=== PATIENT | male | born 1950 | race Caucasian/White ===

== ENCOUNTER 2017-08-09 11:54 | Inpatient (IN) | payer OTHER ==
[~2017-08-09] VITALS: Ht 188 cm; Wt 104.3 kg
[~2017-08-09 11:54] MED LIST: AMLODIPINE-BEN1 EAC2 PO; BISOPROLOL-HCT1 EAC2 PO; HYDROCODON-ACE1 EAC7 PO; KEFLEX250 MG PO
[2017-08-09 13:48] LABS: HEMATOCRIT 47.1 % (38.0-50.0); HEMOGLOBIN 16.1 G/DL (12.5-16.6); MCH 30.3 PG (29.0-34.0); MCHC 34.2 G/DL (30.0-36.0); MCV 88.7 FL (86-99); PLATELET COUNT 471 K/uL (156-360); RBC DIS.WIDTH-CV 12.5 % (11.8-14.6); RBC DIS.WIDTH-SD 40.8 % (39-53); RED BLOOD COUNT 5.31 M/uL (4.00-5.50)
[2017-08-09 13:51] LABS: CHLORIDE 102 mEq/L (99-109); POTASSIUM 3.7 mEq/L (3.7-5.4); SODIUM 138 mEq/L (136-147)
[2017-08-09 13:52] LABS: GLUCOSE 170 mg/dL (70-99)
[2017-08-09 13:56] LABS: CREATININE 0.9 mg/dL (0.6-1.3); GFR ESTIMATE (CALCULATED) > 59 mL/min/ (58.99-99999)
[2017-08-09 13:57] LABS: UREA NITROGEN (BUN) 22 mg/dL (9-23)
[2017-08-09 15:43] VITALS: BP 155/74
[2017-08-09 19:26] VITALS: BP 143/67
[2017-08-10 00:33] VITALS: BP 138/71
[2017-08-10 04:46] VITALS: BP 138/70
[2017-08-10 05:59] LABS: BASOPHIL (%) 0.9 % (0-1); BASOPHIL COUNT 0.1 K/uL (0-0.1); EOSINOPHIL (%) 3.2 % (0-5); EOSINOPHIL COUNT 0.2 K/uL (0-0.3); HEMATOCRIT 42.8 % (38.0-50.0); HEMOGLOBIN 14.2 G/DL (12.5-16.6); IMMATURE GRANULOCYTE (%) 0.6 % (0.0-0.7); LYMPHOCYTE (%) 23.5 % (15-42); LYMPHOCYTE COUNT 1.6 K/uL (1.0-2.8); MCH 29.6 PG (29.0-34.0); MCHC 33.2 G/DL (30.0-36.0); MCV 89.2 FL (86-99); MONOCYTE (%) 12.7 % (3-12); MONOCYTE COUNT 0.9 K/uL (0-0.8); NEUTROPHIL (%) 59.1 % (45-76); NEUTROPHIL COUNT 4.1 K/uL (1.8-6.4); PLATELET COUNT 411 K/uL (156-360); RBC DIS.WIDTH-CV 12.6 % (11.8-14.6); RBC DIS.WIDTH-SD 41.2 % (39-53); WHITE BLOOD COUNT 6.9 K/uL (4.1-10.2)
[2017-08-10 07:48] VITALS: BP 149/74
[2017-08-10 11:56] VITALS: BP 115/72
[2017-08-10 18:45] VITALS: BP 138/69
[2017-08-10 23:16] VITALS: BP 127/76
[2017-08-11 05:55] LABS: HEMATOCRIT 43.9 % (38.0-50.0); HEMOGLOBIN 14.4 G/DL (12.5-16.6); MCH 29.5 PG (29.0-34.0); MCHC 32.8 G/DL (30.0-36.0); PLATELET COUNT 427 K/uL (156-360); RBC DIS.WIDTH-CV 12.4 % (11.8-14.6); RBC DIS.WIDTH-SD 41.1 % (39-53); RED BLOOD COUNT 4.88 M/uL (4.00-5.50); WHITE BLOOD COUNT 7.4 K/uL (4.1-10.2)
[2017-08-11 06:19] LABS: CHLORIDE 103 MEQ/L (99-109); CREATININE 0.9 MG/DL (0.6-1.3); GFR ESTIMATE (CALCULATED) > 59 mL/min/ (58.99-99999); POTASSIUM 4.4 MEQ/L (3.7-5.4); SODIUM 140 MEQ/L (136-147); UREA NITROGEN (BUN) 14 mg/dL (9-23)
[2017-08-11 06:38] LABS: GLUCOSE 94 mg/dL (70-99)
[2017-08-11] MEDS ORDERED: AUGMENTIN875 MG PO (08:16)
[2017-08-11 08:17] VITALS: BP 162/74
[2017-08-11] MEDS ORDERED: FLORASTOR250 MG PO (08:17)
[2017-08-11 09:11] LABS: HEMOGLOBIN A1c (GLYCOHEMOGLOB) 5.8 % (Below 5.7)
[2017-08-11] MEDS ORDERED: CORTISONE28 GM TP (10:55)
== END 2017-08-11 12:10 | disposition home or self-care (01) | DRG 603 ==
LOC: EME 11:54 → EDOF 14:15 → ENRESERV 14:19 → EDOF 14:26 → ENRESERV 14:29 → 5WEST 15:31
PROVIDERS: Hospitalist; Internal Medicine; Physician Assistant
DX: L03.116 Cellulitis of left lower limb (principal); E11.65 Type 2 diabetes mellitus with hyperglycemia; I10 Essential (primary) hypertension; B86 Scabies; Z72.0 Tobacco use; Z83.3 Family history of diabetes mellitus
CPT/HCPCS: 80048; 83036; 83605; 85025; 85027; 87040; 93971; 99281; 99284; G0378; J0295; J0690; J1644; J7050